=== PATIENT | male | born 1970 | race Caucasian/White ===

== ENCOUNTER 2023-05-21 09:02 | Day surgery (SDC) | payer OTHER ==
[~2023-05-21] VITALS: Ht 182.9 cm; Wt 96.3 kg
[~2023-05-21 09:02] MED LIST: B-12100021 PO; CHOL100013 PO; GABA-282 PO; HYDR-3363 PO; METH-1165 PO; METO1TAB7 PO; SERO50TA PO; TRAM1CAP15 PO; VENTAER INH
[2023-05-21] MEDS: NS 1,000 ML IV ONE (10:06)
[2023-05-21] MEDS ORDERED: propofoL 200 MG/20 ML VIAL As Ordered ONE (10:39)
[2023-05-21] MEDS ORDERED: LIDOCAINE 2% 100MG/5ML SDV (FOR ANES.) As Ordered ONE (10:39)
[2023-05-21 11:12] VITALS: TEMP 97.5
[2023-05-21 11:35] VITALS: BP 118/87; O2SAT 100
== END 2023-05-21 11:45 | disposition home or self-care (01) ==
LOC: M OPP 09:02
PROVIDERS: ATTEND Surgery
DX: Z12.11 Encounter for screening for malignant neoplasm of colon (principal); K29.70 Gastritis, unspecified, without bleeding; K31.89 Other diseases of stomach and duodenum; K30 Functional dyspepsia; R13.10 Dysphagia, unspecified; G47.33 Obstructive sleep apnea (adult) (pediatric); Z99.89 Dependence on other enabling machines and devices; J44.9 Chronic obstructive pulmonary disease, unspecified; F17.200 Nicotine dependence, unspecified, uncomplicated; Z79.51 Long term (current) use of inhaled steroids; Z79.891 Long term (current) use of opiate analgesic; Z79.899 Other long term (current) drug therapy

== ENCOUNTER → 2023-11-02 | Outpatient (REF) | payer OTHER ==
[~2023-11-02] MED LIST changes: +GABA-1172 PO; -GABA-282 PO
[2023-11-02 13:22] LABS: APPEARANCE, URINE CLEAR (CLEAR); BACTERIA, URINE AUTO NEGATIVE (NEGATIVE); BILIRUBIN, URINE AUTO NEGATIVE (NEGATIVE); BLOOD, URINE BLOOD NEGATIVE (NEGATIVE); COLOR, URINE YELLOW (YELLOW); GLUCOSE, URINE (UA) AUTO NEGATIVE (NEGATIVE); KETONE, URINE AUTO NEGATIVE (NEGATIVE); LEUKOCYTE ESTERASE, URINE AUTO NEGATIVE (NEGATIVE); NITRITE, URINE AUTO NEGATIVE (NEGATIVE); PROTEIN, URINE AUTO NEGATIVE (NEGATIVE); RBC, URINE AUTO 0 /HPF (0-3); SPECIFIC GRAVITY URINE AUTO 1.013 (1.002-1.035); SQUAMOUS EPITHELIAL CELL UR AU 0 /HPF (0-6); UROBILINOGEN, URINE AUTO 0.2 mg/dL (0.0-2.0); WBC, URINE AUTO 1 /HPF (0-3)
== END ==
LOC: M SMT 12:21
PROVIDERS: ATTEND Urology
DX: R31.9 Hematuria, unspecified (principal)
CPT/HCPCS: 81001; 87086; 88108; G0463

== ENCOUNTER → 2023-11-13 | Outpatient (CLI) | payer OTHER ==
[~2023-11-13] MED LIST changes: -GABA-1172 PO; +GABA-282 PO; +ISOVUE-370 76% 100ML VIAL ONE
== END ==
LOC: M PLAIMG 13:43
PROVIDERS: ATTEND Urology
DX: R31.9 Hematuria, unspecified (principal); K76.0 Fatty (change of) liver, not elsewhere classified
CPT/HCPCS: 74178; Q9967

== ENCOUNTER 2024-10-16 20:44 | Observation (INO) | payer OTHER ==
[~2024-10-16] VITALS: Ht 180.3 cm; Wt 83.8 kg
[~2024-10-16 20:44] MED LIST changes: -CHOL100013 PO; +CHOL25TA16 PO; +GABA-1172 PO; -GABA-282 PO; -ISOVUE-370 76% 100ML VIAL ONE
[2024-10-16] MEDS: FAMOTIDINE 20 MG/2 ML VIAL IVP ONE (23:50)
[2024-10-16] MEDS: diphenhydrAMINE 50 MG/ML VIAL IV ONE (23:50)
[2024-10-16] MEDS: KETOROLAC 30 MG/ML 1 ML VIAL IV ONE (23:50)
[2024-10-17 00:14] LABS: BASO # 0.0 10^3/uL (0.0-0.2); BASO % 0.2 % (0.0-1.0); EOS # 0.3 10^3/uL (0.0-0.5); EOS % 7.1 % (0.0-3.0); LYMPH # 1.7 10^3/uL (1.5-5.0); LYMPH % 39.5 % (24.0-44.0); MONO # 0.3 10^3/uL (0.0-0.8); MONO % 7.8 % (2.0-8.0); NEUTROPHILS # 2.0 10^3/uL (1.5-8.5); NEUTROPHILS % 44.9 % (36.0-66.0); PLATELET COUNT, AUTOMATED 209 10^3/uL (150-450)
[2024-10-17 00:20] LABS: C REACTIVE PROTEIN QUANTITATIV < 0.50 MG/DL (<1.0)
[2024-10-17 00:46] LABS: CALCIUM LEVEL 8.7 MG/DL (8.5-10.1); CARBON DIOXIDE LEVEL 28 MMOL/L (20-31); CHLORIDE LEVEL 110 MMOL/L (98-107); POTASSIUM SERUM 4.3 MMOL/L (3.5-5.1); SODIUM LEVEL 144 MMOL/L (136-145)
[2024-10-17 00:53] LABS: ERYTHROCYTE SEDIMENTATION RATE < 1 mm/hr (0-20)
[2024-10-17 00:55] LABS: CREATININE FOR GFR 0.70 MG/DL (0.70-1.30); GLOMERULAR FILTRATION RATE > 90.0 (>56)
[2024-10-17] MEDS ORDERED: VANICREAM MOISTURIZING SKIN CREAM 113GM TUBE TOP PRN (01:05)
[2024-10-17] MEDS ORDERED: ACETAMINOPHEN 325 MG TAB PO PRN (01:05)
[2024-10-17] MEDS ORDERED: MAALOX 30 ML SUSP *UDC PO PRN (01:05)
[2024-10-17] MEDS ORDERED: MOM 30 ML SUSPENSION UDC PO PRN (01:05)
[2024-10-17] MEDS: CEFTAROLINE FOSAMIL 600 MG in DEXTROSE 5% (D5W) ADV/MINI-BAG 50 ML IV ONE (01:14)
[2024-10-17] MEDS: NS (Normal Saline) 0.9% 1,000 ML IV SCH (02:47)
[2024-10-17 03:00] VITALS: BP 135/93; TEMP 99.1; O2SAT 96
[2024-10-17] MEDS ORDERED: VITA200032 PO (05:55)
[2024-10-17] MEDS ORDERED: XALA0.007 OU (05:55)
[2024-10-17] MEDS ORDERED: OMEP40CA4 PO (05:55)
[2024-10-17] MEDS ORDERED: BUPR2SUB SL (05:55)
[2024-10-17] MEDS ORDERED: TRAM50TA2 PO (05:55)
[2024-10-17] MEDS ORDERED: METO1TAB33 PO (05:55)
[2024-10-17] MEDS ORDERED: QUET100T2 PO (05:55)
[2024-10-17] MEDS ORDERED: HOME MED LIST COMPLETE! XX SCH (06:00)
[2024-10-17] MEDS ORDERED: ALBUTEROL 90 MCG/ACT 8 GM HFA INHALER INH PRN (06:20)
[2024-10-17] MEDS ORDERED: traMADol 50 MG TAB PO PRN (06:20)
[2024-10-17 07:54] LABS: PLATELET COUNT, AUTOMATED 178 10^3/uL (150-450)
[2024-10-17 08:33] LABS: CALCIUM LEVEL 8.1 MG/DL (8.5-10.1); CARBON DIOXIDE LEVEL 29 MMOL/L (20-31); CHLORIDE LEVEL 111 MMOL/L (98-107); CREATININE FOR GFR 0.83 MG/DL (0.70-1.30); GLOMERULAR FILTRATION RATE > 90.0 (>56); POTASSIUM SERUM 4.3 MMOL/L (3.5-5.1); SODIUM LEVEL 144 MMOL/L (136-145)
[2024-10-17 08:37] VITALS: BP 149/87; TEMP 98.8; O2SAT 98
[2024-10-17] MEDS: DOCUSATE SODIUM 100 MG CAPSULE PO SCH (09:00)
[2024-10-17] MEDS: CLOTRIMAZOLE 1% TOPICAL CREAM 30 GM EXT SCH (09:29)
[2024-10-17] MEDS: PANTOPRAZOLE 40MG VIAL IV SCH (09:29)
[2024-10-17] MEDS: GABAPENTIN 300 MG CAP PO SCH (09:29)
[2024-10-17] MEDS ORDERED: PRED20TA PO (11:16)
[2024-10-17] MEDS ORDERED: BENA25CA4 PO (11:16)
[2024-10-17] MEDS ORDERED: RIVAROXABAN 10MG TAB PO SCH (18:00)
[2024-10-17] MEDS ORDERED: METOPROLOL SUCC. 50 MG *XL* TAB PO SCH (21:00)
[2024-10-17] MEDS ORDERED: LATANOPROST 0.005% OPHTH SOLN 2.5 ML OU SCH (21:00)
== END 2024-10-17 12:26 | disposition home or self-care (01) ==
LOC: M ED 20:44 → M ED INP 10-17 01:04 → INTOOBSV 10-17 01:04 → M MS4PR 10-17 03:00
PROVIDERS: ADMIT Student in an Organized Health Care Education/Training Program; ATTEND Student in an Organized Health Care Education/Training Program
DX: L30.2 Cutaneous autosensitization (principal); T63.441A Toxic effect of venom of bees, accidental (unintentional), initial encounter; G47.33 Obstructive sleep apnea (adult) (pediatric); J44.9 Chronic obstructive pulmonary disease, unspecified; K21.9 Gastro-esophageal reflux disease without esophagitis; F10.90 Alcohol use, unspecified, uncomplicated; F17.200 Nicotine dependence, unspecified, uncomplicated; Z66 Do not resuscitate; Z79.899 Other long term (current) drug therapy
CPT/HCPCS: 36415; 80048; 85025; 85027; 85652; 86140; 87040; 87070; 87077; 87186; 96361; 96365; 96375; 99284; G0378; J0712; J1200; J1308; J1885; J2470; J2919